=== PATIENT | male | born 1965 | race American Indian/Alaskan Native ===

== ENCOUNTER 2017-12-24 02:40 | Emergency (ER) | payer MEDICAID ==
[2017-12-24 02:59] VITALS: BP 118/80; PULSE 60; RESP 18; TEMP 98.6
--- NOTE | 2017-12-24 03:13 | ED PDOC ---
Arrival/HPI - General Chief Complaint: ENT Problem Time Seen by Provider: 12/24/17 03:00 Historian: Patient - History of Present Illness Narrative History of Present Illness (Text): 12/24/17 03:12 52 year old male, whose past medical history includes Crohn's Disease, presents to the emergency department complaining of worsening infection to the nose. Patient states he had picked a pimple on his nose in the recent past with subsequent redness and swelling to both inside and outside of the nose. Patient states he have been having a subjective fever and chills. He is also complaining of tenderness to the right axilla. Patient denies any chest pain, shortness of breath, nausea, vomiting, diarrhea, urinary symptoms, back pain, neck pain, headache, dizziness, or any other complaints. Symptom Onset: Gradual Symptom Course: Worsening Activities at Onset: Light Context: Home Past Medical History - Provider Review Nursing Documentation Reviewed: Yes - Cardiac Hx Cardiac Disorders: No - Pulmonary Hx Respiratory Disorders: No - Neurological Hx Neurological Disorder: No - HEENT Hx HEENT Disorder: No - Renal Hx Renal Disorder: No - Endocrine/Metabolic Hx Endocrine Disorders: No - Hematological/Oncological Hx Blood Disorders: No - Integumentary Hx Dermatological Disorder: No - Musculoskeletal/Rheumatological Hx Musculoskeletal Disorders: No - Gastrointestinal Hx Gastrointestinal Disorders: Yes Hx Crohn's Disease: Yes - Genitourinary/Gynecological Hx Genitourinary Disorders: No - Psychiatric Hx Psychophysiologic Disorder: No Hx Substance Use: No Family/Social History - Physician Review Nursing Documentation Reviewed: Yes Family/Social History: No Known Family HX Smoking Status: Light Smoker < 10 Cigarettes Daily Hx Alcohol Use: No Hx Substance Use: No Allergies/Home Meds Allergies/Adverse Reactions: Allergies No Known Allergies Allergy (Verified 01/21/16 20:19) Home Medications: Home Meds Medication Instructions Recorded Confirmed SulfaSALAzine [Azulfidine] 500 mg PO QID 01/21/16 01/21/16 oxyCODONE/Acetaminophen [Percocet 1 tab PO Q6 PRN 01/21/16 01/21/16 5/325 mg Tab] Review of Systems - Physician Review All systems were reviewed & negative as marked: Yes - Review of Systems Constitutional: Fevers, Other (Chills) ENT: Other (swelling and redness to the nose) Cardiovascular: absent: Chest Pain Gastrointestinal: absent: Diarrhea, Nausea, Vomiting Genitourinary Male: absent: Dysuria, Frequency, Hematuria Musculoskeletal: Other (right axilla tenderness). absent: Back Pain, Neck Pain Neurological: absent: Headache, Dizziness Physical Exam Vital Signs Reviewed: Yes Vital Signs Temp Pulse Resp BP Pulse Ox 12/24/17 06:26 18 98 12/24/17 06:25 18 98 12/24/17 02:56 98.6 F 60 18 118/80 100 Temperature: Afebrile Blood Pressure: Normal Pulse: Regular Respiratory Rate: Normal Appearance: Positive for: Well-Appearing, Non-Toxic, Comfortable Pain Distress: None Mental Status: Positive for: Alert and Oriented X 3 - Systems Exam Head: Present: Atraumatic, Normocephalic Pupils: Present: PERRL Extroacular Muscles: Present: EOMI Conjunctiva: Present: Normal Ears: Present: NORMAL TM (TM intact bilaterally ) Mouth: Present: Moist Mucous Membranes Nose (External): Present: Other (overlying scabbed papule to the anterior nasal region. Gross swelling and erythema to the nose. ) Nose (Internal): Present: Other (Swelling to the right inner nares. There is tenderness to palpation to the area ) Neck: Present: Normal Range of Motion Respiratory/Chest: Present: Clear to Auscultation, Good Air Exchange. No: Respiratory Distress, Accessory Muscle Use Cardiovascular: Present: Regular Rate and Rhythm, Normal S1, S2. No: Murmurs Abdomen: No: Tenderness, Distention, Peritoneal Signs Back: Present: Normal Inspection Upper Extremity: Present: Tenderness (small tenderness papule to the right axilla region. ), Erythema (Minimal erythema to the area. ). No: Cyanosis, Edema Lower Extremity: Present: Normal Inspection. No: Edema Neurological: Present: GCS=15, CN II-XII Intact, Speech Normal Skin: Present: Warm, Dry, Normal Color. No: Rashes Psychiatric: Present: Alert, Oriented x 3, Normal Insight, Normal Concentration Medical Decision Making ED Course and Treatment: 12/24/17 03:12 Impression: 52 year old male presents complaining of redness and swelling to both inside and outside of the nose s/p patient picking a pimple on this nose. He is also complaining of tenderness to the right axilla. Plan: -- Labs -- Vancomycin, Zosyn -- Blood culture -- Reassess and disposition Progress Notes: 12/24/17 05:08 Patient does not want to be admitted. Request oral antibiotics instead. Patient understand risk of leaving can lead to worsening infection, blood infection, or . Patient is encouraged to follow up in clinic or return to ER if there is no improvement or worsening symptoms. Patient is signing out against medical advice Leaving Against Medical Advice (AMA): The patient is choosing to leave against medical advice. I have personally explained to the patient that choosing to do so may result in permanent bodily harm or . I have discussed at great length that without further evaluation and monitoring there may be unforeseen circumstances and/or deterioration causing permanent bodily harm or as a result of their choice. The patient is alert, oriented, and shows the mental capacity to make clear decisions regarding the patients health care at this time. The patient continues to wish to leave against medical advice. In light of the patients decision to leave against medical advice, follow-up has been arranged and the patient is aware of the importance to following up as instructed. The patient has been advised that they should return to the emergency room immediately if they change their mind at any time, or if their condition begins to change or worsen in any way. - Lab Interpretations Lab Results: 12/24/17 03:58 12/24/17 03:58 Lab Results 12/24/17 03:58: WBC 6.7, RBC 3.88, Hgb 8.6 L, Hct 27.3 L, MCV 70.4 L, MCH 22.2 L , MCHC 31.5, RDW 16.1 H, Plt Count 320, MPV 8.5 12/24/17 03:58: Sodium 140, Potassium 3.2 L, Chloride 102, Carbon Dioxide 29, Anion Gap 12, BUN 12, Creatinine 0.8, Est GFR ( Amer) > 60, Est GFR (Non- Af Amer) > 60, Random Glucose 101, Calcium 8.5, Total Bilirubin 0.1 L, AST 29, ALT 22, Alkaline Phosphatase 72, Total Protein 6.5, Albumin 3.2, Globulin 3.4, Albumin/Globulin Ratio 0.9 L I have reviewed the lab results: Yes - Medication Orders Current Medication Orders: Discontinued Medications Vancomycin HCl (Vancomycin 1gm) 1 gm in 250 mls @ 167 mls/hr IVPB STAT STA PRN Reason: Protocol Stop: 12/24/17 04:59 Last Admin: 12/24/17 05:49 Dose: 167 mls/hr eMAR Start Stop Document 12/24/17 05:49 SS (Rec: 12/24/17 05:49 SS [id number] Intravenous Solution Start Date 12/24/17 Start Time 05:15 End Date 12/24/17 End time 06:45 Total Infusion Time 90 Piperacillin Sod/Tazobactam Sod (Zosyn 3.375 In Ns 100ml) 100 mls @ 200 mls/hr IV STAT STA PRN Reason: Protocol Stop: 12/24/17 03:54 Last Admin: 12/24/17 04:10 Dose: 200 mls/hr eMAR Start Stop Document 12/24/17 04:10 SS (Rec: 12/24/17 04:10 SS [facility] [id number]) Intravenous Solution Start Date 12/24/17 Start Time 04:10 Potassium Chloride (K-Dur 20 Meq Er Tab) 40 meq PO STAT STA Stop: 12/24/17 04:31 Last Admin: 12/24/17 05:49 Dose: 40 meq - Scribe Statement The provider has reviewed the documentation as recorded by the Nikita Fletcher Provider Scribe Attestation: All medical record entries made by the Nikita were at my direction and personally dictated by me. I have reviewed the chart and agree that the record accurately reflects my personal performance of the history, physical exam, medical decision making, and the department course for this patient. I have also personally directed, reviewed, and agree with the discharge instructions and disposition. Disposition/Present on Arrival - Present on Arrival Any Indicators Present on Arrival: No History of DVT/PE: No History of Uncontrolled Diabetes: No Urinary Catheter: No History of Decub. Ulcer: No History Surgical Site Infection Following: None - Disposition Have Diagnosis and Disposition been Completed?: Yes Diagnosis: Cellulitis of nasal tip Disposition: AGAINST MEDICAL ADVICE Disposition Time: 05:03 Condition: STABLE Discharge Instructions (ExitCare): Cellulitis (Skin Infection), Adult (DC), Cellulitis (ED) Additional Instructions: Take meds as prescribed/Follow up in clinic this week/Return to the emergency room if no improvement/worsening symptoms Prescriptions: Sulfamethoxazole/Trimethoprim [Bactrim DS 800 mg-160 mg] 1 tab PO BID #14 tab Cephalexin [cephalexin] 500 mg PO BID #14 cap Forms: [employer] (Frisian)
[2017-12-24] MEDS ORDERED: Piperacillin/Tazobact 3.375 gm 100 ML IV STA (03:25)
[2017-12-24] MEDS ORDERED: Vancomycin 1gm in NS 250ml 1 GM/250 ML BAG IVPB STA (03:30)
[2017-12-24 04:24] LABS: ALB/GLOB RATIO 0.9 (1.1-1.8); ALBUMIN 3.2 g/dL (3.0-4.8); ALT/SGPT 22 U/L (7-56); AST/SGOT 29 U/L (17-59); BLOOD UREA NITROGEN 12 mg/dL (7-21); CALCIUM 8.5 mg/dL (8.4-10.5); GFR NON-AFRICAN AMERICAN > 60
[2017-12-24] MEDS ORDERED: Potassium Chloride 20 mEq ER Tab PO STA (04:30)
[2017-12-24 04:41] LABS: HEMOGLOBIN 8.6 g/dL (14.0-18.0); MEAN CELL VOLUME 70.4 fl (80.0-105.0); MEAN CORPUSCULAR HEMOGLOBIN 22.2 pg (25.0-35.0); MEAN CORPUSCULAR HGB CONC 31.5 g/dl (31.0-37.0); MEAN PLATELET VOLUME 8.5 fl (7.0-11.0); RBC 3.88 10^6/uL (3.5-6.1); RED CELL DISTRIBUTION WIDTH 16.1 % (11.5-14.5); WHITE BLOOD COUNT 6.7 10^3/ul (4.5-11.0)
[2017-12-24 06:26] VITALS: O2SAT 98
== END 2017-12-24 06:26 | disposition left against medical advice (07) ==
LOC: ED 02:40 → MERGE 02:40 → ED 06:26
DX: J34.0 Abscess, furuncle and carbuncle of nose (principal); F17.210 Nicotine dependence, cigarettes, uncomplicated
CPT/HCPCS: 80053; 85027; 87040; 96365; 99284; J2543